=== PATIENT | male | born 1975 | race Hispanic/Latino ===

== ENCOUNTER 2019-01-31 10:16 | Outpatient (CLI) | payer MEDICARE ==
[2019-01-31] MEDS ORDERED: LIDOCAINE (4%) 40 MG/ML TOPICAL SOLN 50 ML BOTTLE TP ONE (11:00)
== END 2019-01-31 10:17 | disposition home or self-care (01) ==
LOC: WOUND 10:16
PROVIDERS: ATTEND Surgery
DX: L97.323 Non-pressure chronic ulcer of left ankle with necrosis of muscle (principal); L97.222 Non-pressure chronic ulcer of left calf with fat layer exposed; G80.9 Cerebral palsy, unspecified
CPT/HCPCS: 11042; 11043; G0463; 99204

== ENCOUNTER 2019-02-08 11:20 | Day surgery (SDC) | payer MEDICARE ==
[~2019-02-08 11:20] MED LIST: SODIUM CHLORIDE 0.9% 1000 ML 1,000 ML IV SCH
[2019-02-08] MEDS ORDERED: LIDOCAINE MPF (2%) 20 MG/1 ML VIAL 5 ML ONE (12:30)
[2019-02-08] MEDS ORDERED: PROPOFOL 200 MG/20 ML VIAL IV ONE ×2 (12:33→12:34)
--- NOTE | 2019-02-08 12:47 | Anesthesia Consultation ---
Anesthesia Consult and Med Hx Date of service: 02/08/19 - Airway Anesthetic Teeth Evaluation: Poor ROM Head & Neck: Adequate Mental/Hyoid Distance: Adequate Mallampati Class: Class II Intubation Access Assessment: Good - Pulmonary Exam CTA: Yes - Cardiac Exam Cardiac Exam: RRR - Pre-Operative Health Status ASA Pre-Surgery Classification: ASA3 Proposed Anesthetic Plan: MAC - Central Nervous System Hx Seizures: Yes - Endocrine Hx Renal Disease: Yes - Hematic Hx Anemia: Yes
--- NOTE | 2019-02-08 12:47 | Anesthesia Day of Surgery ---
Anesthesia Day of Surgery - Day of Surgery Patient Examined: Yes Patient H&P Reviewed: Yes Patient is NPO: Yes
--- NOTE | 2019-02-08 13:08 | Short Stay Summary ---
Short Stay Documentation Date of service: 02/08/19 Narrative H&P: Pt is a 43 yo wm with h/o developmental delay/cerebral palsy who presents for egd/colonoscopy due to [place] and weight loss. Pt accompanied by medical care manager and mother. weight stable since clinic appt; no new gi issues since last appt. - History Past Medical History: other (no changes from clinic note) Past Surgical History: Other (no changes from clinic note) Social history: other (no changes) - Allergies and Medications Current Medications: Allergies No Known Allergies Allergy (Verified 07/03/15 10:03) Home Medications Medication Instructions Recorded Confirmed Last Taken Type Benztropine 1 tab PO DAILY 02/07/19 02/08/19 02/05/19 History Carbamazepine 1 tab PO DAILY 02/07/19 02/08/19 02/05/19 History Coenzyme Q-10 1 tab PO DAILY 02/07/19 02/08/19 02/05/19 History Divalproex Sodium 1 tab PO DAILY 02/07/19 02/08/19 02/05/19 History Docusate Sodium 1 applicator PO DAILY 02/07/19 02/08/19 02/05/19 History Folic Acid 1 mg PO DAILY 02/07/19 02/08/19 02/05/19 History Loratadine 10 mg PO DAILY 02/07/19 02/08/19 02/05/19 History Meloxicam 1 tab PO DAILY 02/07/19 02/08/19 02/05/19 History Multiple Vitamins 1 tab PO DAILY 02/07/19 02/08/19 02/05/19 History QUEtiapine 1 tab PO DAILY 02/07/19 02/08/19 02/05/19 History Ranitidine HCl 150 mg PO DAILY 02/07/19 02/08/19 02/05/19 History Vitamin C 1 tab PO DAILY 02/07/19 02/08/19 02/05/19 History Active Medications Sodium Chloride (Nacl 0.9% 1000 Ml) 1,000 mls @ 50 mls/hr IV DIRECT DANNY Last Admin: 02/08/19 12:29 Dose: 50 mls/hr Documented by: - Physical exam General appearance: no acute distress Heart: Regular rate, Normal S2 Gastrointestinal: normal - Brief post op/procedure progress note Date of procedure: 02/08/19 Pre-op diagnosis: iron deficiency anemia, weight loss Post-op diagnosis: other (ulcerative esophagitis; incomplete colon due to poor prep) Procedure: EGD: ulcerative esophagitis s/p biopsies; otherwise normal upper endoscopy. duodenal bx's obtained to r/o sprue Colonoscopy: poor prep; extent of exam likely hepatic flexure/proximal transver se. aborted due to inadequate visualization. Anesthesia: MAC Findings: 1. EGD: ulcerative esophagitis 2. Colonoscopy: poor prep; no obvious significant lesions in visualized portion of colon Surgeon: LAZ WAYNE Estimated blood loss: minimal Pathology: list (Jar A - duodenal biopsies; Jar B - ulcerative esophagitis biopsies) Specimen disposition: to lab Condition: stable - Disposition Condition at discharge: Fair Disposition: DC-01 TO HOME OR SELFCARE Short Stay Discharge Plan Follow up with: ABRAHAM DUARTE [Other] - 7 Days
--- NOTE | 2019-02-08 13:10 | Operative Report ---
Operative Report Operative Report: Esophagogastroduodenoscopy Procedure Note with Biopsies Date of procedure: 02/08/2019 Endoscopist: Srinivasan Payne Pre-op diagnosis/indication: Iron deficiency anemia, weight loss Post-op diagnosis: Ulcerative esophagitis MEDICATIONS: MAC COMPLICATIONS: No immediate complications ESTIMATED BLOOD LOSS: minimal DESCRIPTION OF PROCEDURE: After consent was obtained from the patient's mother, the patient was placed in the left lateral decubitis position. The olympus endoscope was inserted into the patient's mouth under direct vision and advanced to the 2nd portion of the duodenum without difficulty. The patient tolerated the procedure well. The views of the mucosa were good. The patient's vital signs were monitored continuously throughout the procedure. FINDINGS: There was severe ulcerative esophagitis (superficial ulcerations without bleeding stigmata) in the lower third of the esophagus. Biopsies were obtained (rule out infectious etiology, jolley's esophagus). The stomach appeared normal. The duodenum appeared normal. biopsies were obtained to rule out celiac disease. IMPRESSION: 1. Ulcerative esophagitis. Biopsied. 2. Otherwise normal stomach and duodenum. Biopsies obtained from duodenum to rule out celiac disease. RECOMMENDATIONS: -follow up pathology -anti-acid medication (PPI) daily -follow up in GI clinic in 1 month
--- NOTE | 2019-02-08 13:13 | Operative Report ---
Operative Report Operative Report: Colonoscopy Procedure Note Date of procedure: 02/08/2019 Endoscopist: Srinivasan Payne Pre-op diagnosis/indication: Iron deficiency anemia Post-op diagnosis: poor prep, no significant lesions in visualized portion of colon MEDICATIONS: MAC COMPLICATIONS: No immediate complications ESTIMATED BLOOD LOSS: none DESCRIPTION OF PROCEDURE: After consent was obtained from the patient's mother, the patient was placed in the left lateral decubitis position. The olympus colonoscope was inserted into the rectum under direct vision, and advanced to the suspected hepatic flexure (intent of exam was cecum). The procedure was aborted due to poor prep/inadequate visualization. The patient tolerated the procedure well. The patient's vital signs were monitored continuously throughout the procedure. FINDINGS: Inadequate/poor prep. Extent of exam suspected proximal transverse colon vs hepatic flexure. Further advancement of colonsocope not done due to solid stool preventing visualization. No obvious significant lesions were seen in the visualized portion of the colon however. IMPRESSION: 1. Poor prep, extent of exam likely hepatic flexure vs proximal transverse colon. procedure aborted due to inadequate prep RECOMMENDATIONS: -barium enema vs CT colonography. will discuss at follow-up appointment in 3-4 weeks. -check labs at follow-up appointment
[2019-02-08 13:39] VITALS: BP 109/63
--- NOTE | 2019-02-08 15:50 | Post Anesthesia Evaluation ---
- Post Anesthesia Evaluation Patient Participated: Yes Airway Patent: Yes Stable Respiratory Function: Yes Nausea/Vomiting: No Temp > 96.8F: Yes Pain Manageable: Yes Adequeate Hydration: Yes Anesthesia Complications: No Block Receding Appropriately: Not Applicable Patient on Ventilator: No
== END 2019-02-08 13:46 | disposition home or self-care (01) ==
LOC: GIO 11:20
PROVIDERS: ATTEND Internal Medicine Gastroenterology
DX: D50.9 Iron deficiency anemia, unspecified (principal); K31.89 Other diseases of stomach and duodenum; K20.9 Esophagitis, unspecified; R63.4 Abnormal weight loss; N28.89 Other specified disorders of kidney and ureter; F31.9 Bipolar disorder, unspecified; Z79.899 Other long term (current) drug therapy
CPT/HCPCS: 43239; 45378; 88305; 88312; 88342; J2704; J7030; 88341

== ENCOUNTER 2019-02-09 09:40 | Outpatient (CLI) | payer MEDICARE | END 2019-02-09 09:41 | disposition home or self-care (01) | LOC: WOUND 09:40 | PROVIDERS: ATTEND Surgery | DX: L97.323 Non-pressure chronic ulcer of left ankle with necrosis of muscle (principal); L97.222 Non-pressure chronic ulcer of left calf with fat layer exposed; J42 Unspecified chronic bronchitis; F79 Unspecified intellectual disabilities ==

== ENCOUNTER 2019-02-16 10:29 | Outpatient (CLI) | payer MEDICARE ==
[2019-02-16] MEDS ORDERED: XYLOCAINE TOPICAL 4% TP ONE (11:00)
== END 2019-02-16 10:30 | disposition home or self-care (01) ==
LOC: WOUND 10:29
PROVIDERS: ATTEND Surgery
DX: L97.323 Non-pressure chronic ulcer of left ankle with necrosis of muscle (principal); L97.222 Non-pressure chronic ulcer of left calf with fat layer exposed; J42 Unspecified chronic bronchitis; F79 Unspecified intellectual disabilities

== ENCOUNTER 2019-02-21 10:58 | Outpatient (CLI) | payer MEDICARE ==
--- NOTE | 2019-02-21 16:07 | Vascular Lab Report ---
DUPLEX DOPPLER LOWER EXTREMITY ARTERIAL, BILATERAL INDICATION: Chronic ulcer left ankle. TECHNIQUE: Arterial duplex examination of both lower extremities performed using B-mode, color flow and spectral Doppler assessment. FINDINGS: RIGHT: Common Femoral Artery: PSV 125 cm/sec. Triphasic waveform. Proximal SFA: PSV 90 cm/sec. Triphasic waveform. Mid SFA: PSV 121 cm/sec. Triphasic waveform. Distal SFA: PSV 108 cm/sec. Biphasic waveform. Popliteal artery: PSV 80 cm/sec. Biphasic waveform. Posterior tibial artery: PSV 44 cm/sec. Biphasic waveform. Dorsalis Pedis Artery: PSV 59 cm/sec. Biphasic waveform. LEFT: Common Femoral Artery: PSV 149 cm/sec. Triphasic waveform. Proximal SFA: PSV 116 cm/sec. Triphasic waveform. Mid SFA: PSV 136 cm/sec. Biphasic waveform. Distal SFA: PSV 130 cm/sec. Monophasic waveform. Popliteal artery: PSV 112 cm/sec. Monophasic waveform. Posterior tibial artery: PSV 90 cm/sec. Monophasic waveform. Dorsalis Pedis Artery: PSV 23 cm/sec. Monophasic waveform. IMPRESSION: 1. There is a change from triphasic to monophasic flow in the left superficial femoral artery indicat ing significant disease in the mid to distal SFA on the left. No discrete velocity of change is seen. There is evidence of disease in the distal runoff vessels bilaterally. These but no discrete velocity elevation is seen in the distal runoff vessels of either lower extremity. * Doppler Waveform: * Triphasic is normal. * Biphasic is abnormal if clear transition from triphasic signal along vascular tree. * Monophasic is abnormal. Signer Name: Edmar Pineda MD Signed: 02/21/2019 4:02 PM Workstation Name: [id number]
== END 2019-02-21 10:59 | disposition home or self-care (01) ==
LOC: VAS 10:58
PROVIDERS: ATTEND Surgery
DX: L97.323 Non-pressure chronic ulcer of left ankle with necrosis of muscle (principal)
CPT/HCPCS: 93925

== ENCOUNTER 2019-02-23 09:56 | Outpatient (CLI) | payer MEDICARE ==
[2019-02-23] MEDS ORDERED: XYLOCAINE TOPICAL 4% TP ONE (11:18)
== END 2019-02-23 09:57 | disposition home or self-care (01) ==
LOC: WOUND 09:56
PROVIDERS: ATTEND Surgery
DX: L97.323 Non-pressure chronic ulcer of left ankle with necrosis of muscle (principal); L97.222 Non-pressure chronic ulcer of left calf with fat layer exposed; J42 Unspecified chronic bronchitis; F79 Unspecified intellectual disabilities

== ENCOUNTER 2019-03-02 09:56 | Outpatient (CLI) | payer MEDICARE ==
[2019-03-02] MEDS ORDERED: LIDOCAINE (4%) 40 MG/ML TOPICAL SOLN 50 ML BOTTLE TP ONE (11:00)
== END 2019-03-02 09:57 | disposition home or self-care (01) ==
LOC: WOUND 09:56
PROVIDERS: ATTEND Surgery
DX: L97.323 Non-pressure chronic ulcer of left ankle with necrosis of muscle (principal); L97.222 Non-pressure chronic ulcer of left calf with fat layer exposed; J42 Unspecified chronic bronchitis; F79 Unspecified intellectual disabilities

== ENCOUNTER 2019-03-09 09:52 | Outpatient (CLI) | payer MEDICARE ==
[2019-03-09] MEDS ORDERED: LIDOCAINE (4%) 40 MG/ML TOPICAL SOLN 50 ML BOTTLE TP ONE (12:00)
== END 2019-03-09 09:53 | disposition home or self-care (01) ==
LOC: WOUND 09:52
PROVIDERS: ATTEND Surgery
DX: L97.323 Non-pressure chronic ulcer of left ankle with necrosis of muscle (principal); L97.222 Non-pressure chronic ulcer of left calf with fat layer exposed; J42 Unspecified chronic bronchitis; G80.9 Cerebral palsy, unspecified; F79 Unspecified intellectual disabilities

== ENCOUNTER 2019-03-09 17:45 | Emergency (ER) | payer MEDICARE ==
[2019-03-09 19:37] VITALS: BP 138/89
--- NOTE | 2019-03-09 19:41 | Emergency Department Report ---
Blank Doc - Documentation Documentation: 43-year-old male that is brought by shelter facility for a ground level f all. Nurse denies any LOC. HX of mental delay. This initial assessment/diagnostic orders/clinical plan/treatment(s) is/are subject to change based on patient's health status, clinical progression and re- assessment by fellow clinical providers in the ED. Further treatment and workup at subsequent clinical providers discretion. Patient/guardians urged not to elope from the ED as their condition may be serious if not clinically assessed and managed. Initial orders include: 1- Patient sent to [facility] for further evaluation and treatment 2- xray of facial bone
--- NOTE | 2019-03-09 20:28 | XRay Report ---
Facial bones, 4 views INDICATION: Pain following fall tonight FINDINGS: The sinuses are well aerated with no air-fluid levels seen. No facial bone fracture identif ied. Signer Name: Zachariah Atkinson MD Signed: 03/09/2019 8:24 PM Workstation Name: [id number]
--- NOTE | 2019-03-09 21:54 | Emergency Department Report ---
ED Fall HPI - General Chief Complaint: Fall Stated Complaint: LFT ARM PAIN/FALL INJURY Time Seen by Provider: 03/09/19 19:33 Source: patient Mode of arrival: Wheelchair - History of Present Illness Initial Comments: Per caregiver, patient is a 43-year-old white male with a history of MR, seizures and frequent falls who presents to the ED with nosebleed and facial swelling after he lost balance and fell off his chair about 12 hours ago. The caregiver states that the patient is nonambulatory and is usually confined to a wheelchair, and that today he was restrained on his wheelchair when he tipped forward and fell on his face. The caregiver states that the patient did not have any loss of consciousness, has not had any dizziness, nausea, vomiting, seizures, syncope, change in vision, altered mental status or change in activity, chest pain or neck pain or shortness of breath. 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 denies: headache, neck pain, numbness, chest paint, shortness of breath, abdominal pain, unable to walk, lightheaded, vertigo, confusion, other - Related Data Home Medications Medication Instructions Recorded Confirmed Last Taken Benztropine 1 tab PO DAILY 02/07/19 02/08/19 02/05/19 Carbamazepine 1 tab PO DAILY 02/07/19 02/08/19 02/05/19 Coenzyme Q-10 1 tab PO DAILY 02/07/19 02/08/19 02/05/19 Divalproex Sodium 1 tab PO DAILY 02/07/19 02/08/19 02/05/19 Docusate Sodium 1 applicator PO DAILY 02/07/19 02/08/19 02/05/19 Folic Acid 1 mg PO DAILY 02/07/19 02/08/19 02/05/19 Loratadine 10 mg PO DAILY 02/07/19 02/08/19 02/05/19 Meloxicam 1 tab PO DAILY 02/07/19 02/08/1902/05/19 Multiple Vitamins 1 tab PO DAILY 02/07/19 02/08/19 02/05/19 QUEtiapine 1 tab PO DAILY 02/07/19 02/08/19 02/05/19 Ranitidine HCl 150 mg PO DAILY 02/07/19 02/08/19 02/05/19 Vitamin C 1 tab PO DAILY 02/07/19 02/08/19 02/05/19 Allergies Allergy/AdvReac Type Severity Reaction Status Date / Time No Known Allergies Allergy Verified 07/03/15 10:03 ED Review of Systems ROS: Stated complaint: LFT ARM PAIN/FALL INJURY Other details as noted in HPI Constitutional: denies: chills, fever Eyes: denies: eye pain, eye discharge, vision change ENT: other (Nosebleed, facial abrasion and swelling). denies: ear pain, throat pain Respiratory: denies: cough, shortness of breath, wheezing Cardiovascular: denies: chest pain, palpitations Endocrine: no symptoms reported Gastrointestinal: denies: abdominal pain, nausea, diarrhea Genitourinary: denies: urgency, dysuria Musculoskeletal: denies: back pain, joint swelling, arthralgia Skin: other (Chronic open wound on left ankle). denies: rash, lesions Neurological: denies: headache, weakness, paresthesias Psychiatric: denies: anxiety, depression Hematological/Lymphatic: denies: easy bleeding, easy bruising ED Past Medical Hx - Past Medical History Previous Medical History?: Yes Hx Renal Disease: Yes Hx Seizures: Yes Additional medical history: MR, autisim - Surgical History Past Surgical History?: No Hx Appendectomy: No - Social History Smoking Status: Never Smoker - Medications Home Medications: Home Medications Medication Instructions Recorded Confirmed Last Taken Type Benztropine 1 tab PO DAILY 02/07/19 02/08/19 02/05/19 History Carbamazepine 1 tab PO DAILY 02/07/19 02/08/19 02/05/19 History Coenzyme Q-10 1 tab PO DAILY 02/07/19 02/08/19 02/05/19 History Divalproex Sodium 1 tab PO DAILY 02/07/19 02/08/19 02/05/19 History Docusate Sodium 1 applicator PO DAILY 02/07/19 02/08/19 02/05/19 History Folic Acid 1 mg PO DAILY 02/07/19 02/08/19 02/05/19 History Loratadine 10 mg PO DAILY 02/07/19 02/08/19 02/05/19 History Meloxicam 1 tab PO DAILY 02/07/19 02/08/19 02/05/19 History Multiple Vitamins 1 tab PO DAILY 02/07/19 02/08/19 02/05/19 History QUEtiapine 1 tab PO DAILY 02/07/19 02/08/19 02/05/19 History Ranitidine HCl 150 mg PO DAILY 02/07/19 02/08/19 02/05/19 History Vitamin C 1 tab PO DAILY 02/07/19 02/08/19 02/05/19 History ED Physical Exam - General Limitations: No Limitations General appearance: alert, in no apparent distress - Head Head exam: Present: atraumatic, normocephalic, normal inspection - Eye Eye exam: Present: normal appearance, PERRL, EOMI Pupils: Present: normal accommodation - ENT ENT exam: Present: normal orophraynx, mucous membranes moist, TM's normal bilaterally, normal external ear exam, other (facial swelling; nosebleed and abrasions) - Neck Neck exam: Present: normal inspection, full ROM. Absent: tenderness - Respiratory Respiratory exam: Present: normal lung sounds bilaterally. Absent: respiratory distress, wheezes, rhonchi, stridor, chest wall tenderness, accessory muscle use, decreased breath sounds - Cardiovascular Cardiovascular Exam: Present: regular rate, normal rhythm, normal heart sounds. Absent: systolic murmur, diastolic murmur, rubs, gallop - GI/Abdominal GI/Abdominal exam: Present: soft, normal bowel sounds. Absent: tenderness, guarding, rebound, hyperactive bowel sounds, hypoactive bowel sounds, organomegaly - Extremities Exam Extremities exam: Present: normal inspection, full ROM, tenderness (left ankle tenderness due to an open wound on left ankle.), normal capillary refill - Back Exam Back exam: Present: normal inspection, full ROM. Absent: CVA tenderness (L), muscle spasm, paraspinal tenderness - Neurological Exam Neurological exam: Present: alert, oriented X3, CN II-XII intact, abnormal gait (baseline chronic ataxia due to MR, wheelchair bound with unsteady gait), reflexes normal - Psychiatric Psychiatric exam: Present: normal affect, normal mood - Skin Skin exam: Present: warm, dry, intact, normal color, other (Chronic open wound on left ankle with mild redness around the wound edges) ED Course Vital Signs 03/09/19 19:33 Temperature 97.2 F L Pulse Rate 64 Respiratory 16 Rate Blood Pressure 138/89 O2 Sat by Pulse 100 Oximetry - Reevaluation(s) Reevaluation #1: 03/09/19 21:57 This is a 43-year-old male who presented to the ED for evaluation after a fall from his wheelchair. Patient has a history of chronic seizures, ataxia due to MR and chronic frequent falls from his wheelchair. In the ED, patient is alert and fully interactive during physical exam. Facial bone x-ray shows no acute facial bone fractures or subluxations. The patient is currently on clindamycin 300 mg every 6 hours for the chronic left ankle open wound. Patient will discharged home and the caregiver advised to administer the patient's regular pain medications at home which she is ibuprofen as needed and have the patient follow-up with his primary care physician in 5-7 days for reevaluation or return to the ED immediately if symptoms get worse. ED Medical Decision Making - Radiology Data Radiology results: report reviewed, image reviewed Facial x-ray shows no acute facial bone fractures or subluxation. - Medical Decision Making This is a 43-year-old male who presented to the ED for evaluation after a fall from his wheelchair. Patient has a history of chronic seizures, ataxia due to MR and chronic frequent falls from his wheelchair. In the ED, patient is alert and fully interactive during physical exam. Facial bone x-ray shows no acute facial bone fractures or subluxations. The patient is currently on clindamycin 300 mg every 6 hours for the chronic left ankle open wound. Patient will discharged home and the caregiver advised to administer the patient's regular pain medications at home which she is ibuprofen as needed and have the patient follow-up with his primary care physician in 5-7 days for reevaluation or return to the ED immediately if symptoms get worse. - Differential Diagnosis facial contusion; facial bone fractures; Septal fracture Critical care attestation.: If time is entered above; I have spent that time in minutes in the direct care of this critically ill patient, excluding procedure time. ED Disposition Clinical Impression: Nosebleed Contusion of face Qualifiers: Encounter type: initial encounter Qualified Code(s): S00.83XA - Contusion of other part of head, initial encounter Disposition: DC- TO HOME OR SELFCARE Is pt being admited?: No Does the pt Need Aspirin: No Condition: Stable Instructions: Epistaxis (ED), Scalp Contusion in Adults (ED) Additional Instructions: Taking your regular pain medications at home as needed with food, follow-up with their primary care physician in 5-7 days for reevaluation. Return to the emergency Department immediately if symptoms get worse. Referrals: [facility] [Outside] - 3-5 Days Time of Disposition: 22:02 Print Language: SENEGALESE
== END 2019-03-09 22:10 | disposition home or self-care (01) ==
LOC: ED 17:45
DX: S00.33XA Contusion of nose, initial encounter (principal); S91.002A Unspecified open wound, left ankle, initial encounter; Z79.899 Other long term (current) drug therapy; W07.XXXA Fall from chair, initial encounter; Y93.89 Activity, other specified; Y92.098 Other place in other non-institutional residence as the place of occurrence of the external cause; Y99.8 Other external cause status
CPT/HCPCS: 70150; 99283

== ENCOUNTER 2019-03-16 09:19 | Outpatient (CLI) | payer MEDICARE ==
[2019-03-16] MEDS ORDERED: LIDOCAINE (4%) 40 MG/ML TOPICAL SOLN 50 ML BOTTLE TP ONE (10:30)
== END 2019-03-16 09:20 | disposition home or self-care (01) ==
LOC: WOUND 09:19
PROVIDERS: ATTEND Surgery
DX: L97.323 Non-pressure chronic ulcer of left ankle with necrosis of muscle (principal); L97.222 Non-pressure chronic ulcer of left calf with fat layer exposed; J42 Unspecified chronic bronchitis; G80.9 Cerebral palsy, unspecified; F79 Unspecified intellectual disabilities

== ENCOUNTER 2019-03-22 10:12 | Outpatient (CLI) | payer MEDICARE ==
--- NOTE | 2019-03-22 13:44 | Magnetic Resonance Report ---
MRI left ankle with and without contrast HISTORY: L97.323 NON-PRESSURE CHRONIC ULCER OF LEFT ANKLE W NECROSIS OF MU. TECHNIQUE: 15 mL of MultiHance was given intravenously. COMPARISON: None FINDINGS: There is a soft tissue wound along the lateral aspect of the ankle with a tract extending to the tip of the lateral malleolus. There is mild bone marrow edema and low T1 signal in this region . There is no abscess formation identified; however, there is circumferential soft tissue swelling ab out the ankle extending into the foot. The lateral, medial, anterior, and posterior compartment tendons are all intact. The ATFL is attenuated but there are some intact fibers. The lateral, syndesmotic, and deltoid comple xes are otherwise intact. IMPRESSION: Deep soft tissue wound over the lateral aspect of the ankle with tract extending to the tip of the lateral malleolus where there is bone marrow edema and low T1 signal suggesting osteomyeli tis. No organized collection identified to suggest abscess formation. Signer Name: Haja Anton MD Signed: 03/22/2019 1:39 PM Workstation Name: [id number]
== END 2019-03-22 10:13 | disposition home or self-care (01) ==
LOC: MRI 10:12
PROVIDERS: ATTEND Surgery
DX: L97.323 Non-pressure chronic ulcer of left ankle with necrosis of muscle (principal)
CPT/HCPCS: 73723; A9577

== ENCOUNTER 2019-03-23 09:29 | Outpatient (CLI) | payer MEDICARE ==
[2019-03-23] MEDS ORDERED: LIDOCAINE (4%) 40 MG/ML TOPICAL SOLN 50 ML BOTTLE TP ONE (10:07)
== END 2019-03-23 09:30 | disposition home or self-care (01) ==
LOC: WOUND 09:29
PROVIDERS: ATTEND Surgery
DX: L97.323 Non-pressure chronic ulcer of left ankle with necrosis of muscle (principal); L97.222 Non-pressure chronic ulcer of left calf with fat layer exposed; J42 Unspecified chronic bronchitis; G80.9 Cerebral palsy, unspecified; F79 Unspecified intellectual disabilities

== ENCOUNTER 2019-04-05 10:46 | Outpatient (CLI) | payer MEDICARE ==
--- NOTE | 2019-04-05 11:24 | XRay Report ---
CHEST 2 VIEWS INDICATION: FOR HBO CLEARANCE/M86.472CHRONIC OSTEOMYELITIS WITH DRAINING SINU. COMPARISON: None at this facility FINDINGS: Support devices: None. Heart: Within normal limits. Lungs/pleura: No acute air space or interstitial disease. No pneumothorax. Additional findings: There is poor inspiratory effort. IMPRESSION: Negative expiratory chest x-ray. Signer Name: Ronaldo Ivey Jr, MD Signed: 04/05/2019 11:20 AM Workstation Name: [id number]
== END 2019-04-05 10:47 | disposition home or self-care (01) ==
LOC: XRAY 10:46
PROVIDERS: ATTEND Surgery
DX: M86.472 Chronic osteomyelitis with draining sinus, left ankle and foot (principal)
CPT/HCPCS: 71046

== ENCOUNTER 2019-04-06 10:34 | Outpatient (CLI) | payer MEDICARE ==
[2019-04-06] MEDS ORDERED: LIDOCAINE (4%) 40 MG/ML TOPICAL SOLN 50 ML BOTTLE TP ONE (11:30)
== END 2019-04-06 10:35 | disposition home or self-care (01) ==
LOC: WOUND 10:34
PROVIDERS: ATTEND Surgery
DX: L97.323 Non-pressure chronic ulcer of left ankle with necrosis of muscle (principal); L97.222 Non-pressure chronic ulcer of left calf with fat layer exposed; M86.472 Chronic osteomyelitis with draining sinus, left ankle and foot; J42 Unspecified chronic bronchitis; G80.9 Cerebral palsy, unspecified; F79 Unspecified intellectual disabilities

== ENCOUNTER 2019-04-13 10:47 | Outpatient (CLI) | payer MEDICARE ==
[2019-04-13] MEDS ORDERED: LIDOCAINE (4%) 40 MG/ML TOPICAL SOLN 50 ML BOTTLE TP ONE (11:30)
== END 2019-04-13 10:48 | disposition home or self-care (01) ==
LOC: WOUND 10:47
PROVIDERS: ATTEND Surgery
DX: L97.323 Non-pressure chronic ulcer of left ankle with necrosis of muscle (principal); L97.222 Non-pressure chronic ulcer of left calf with fat layer exposed; M86.472 Chronic osteomyelitis with draining sinus, left ankle and foot; J42 Unspecified chronic bronchitis; G80.9 Cerebral palsy, unspecified; F79 Unspecified intellectual disabilities

== ENCOUNTER 2019-04-20 09:45 | Outpatient (CLI) | payer MEDICARE ==
[2019-04-20] MEDS ORDERED: LIDOCAINE (4%) 40 MG/ML TOPICAL SOLN 50 ML BOTTLE TP ONE (11:21)
== END 2019-04-20 09:46 | disposition home or self-care (01) ==
LOC: WOUND 09:45
PROVIDERS: ATTEND Surgery
DX: L97.323 Non-pressure chronic ulcer of left ankle with necrosis of muscle (principal); L97.222 Non-pressure chronic ulcer of left calf with fat layer exposed; M86.472 Chronic osteomyelitis with draining sinus, left ankle and foot; J42 Unspecified chronic bronchitis; G80.9 Cerebral palsy, unspecified; F79 Unspecified intellectual disabilities

== ENCOUNTER 2019-04-27 11:01 | Outpatient (CLI) | payer MEDICARE | END 2019-04-27 11:02 | disposition home or self-care (01) | LOC: WOUND 11:01 ==

== ENCOUNTER 2019-05-11 08:51 | Outpatient (CLI) | payer MEDICARE ==
[2019-05-11] MEDS ORDERED: LIDOCAINE (4%) 40 MG/ML TOPICAL SOLN 50 ML BOTTLE TP ONE (09:30)
== END 2019-05-11 08:52 | disposition home or self-care (01) ==
LOC: WOUND 08:51
PROVIDERS: ATTEND Surgery
DX: L97.323 Non-pressure chronic ulcer of left ankle with necrosis of muscle (principal); L97.222 Non-pressure chronic ulcer of left calf with fat layer exposed; M86.472 Chronic osteomyelitis with draining sinus, left ankle and foot; J42 Unspecified chronic bronchitis; G80.9 Cerebral palsy, unspecified; F79 Unspecified intellectual disabilities

== ENCOUNTER 2019-05-18 09:00 | Outpatient (CLI) | payer MEDICARE ==
[2019-05-18] MEDS ORDERED: LIDOCAINE (4%) 40 MG/ML TOPICAL SOLN 50 ML BOTTLE TP ONE (09:13)
== END 2019-05-18 09:01 | disposition home or self-care (01) ==
LOC: WOUND 09:00
PROVIDERS: ATTEND Surgery
DX: L97.323 Non-pressure chronic ulcer of left ankle with necrosis of muscle (principal); L97.222 Non-pressure chronic ulcer of left calf with fat layer exposed; M86.472 Chronic osteomyelitis with draining sinus, left ankle and foot; J42 Unspecified chronic bronchitis; G80.9 Cerebral palsy, unspecified; F79 Unspecified intellectual disabilities

== ENCOUNTER 2019-06-06 09:47 | Outpatient (CLI) | payer MEDICARE ==
[2019-06-06] MEDS ORDERED: LIDOCAINE (4%) 40 MG/ML TOPICAL SOLN 50 ML BOTTLE TP ONE (10:30)
== END 2019-06-06 09:48 | disposition home or self-care (01) ==
LOC: WOUND 09:47
PROVIDERS: ATTEND Surgery
DX: L97.323 Non-pressure chronic ulcer of left ankle with necrosis of muscle (principal); L97.222 Non-pressure chronic ulcer of left calf with fat layer exposed; M86.472 Chronic osteomyelitis with draining sinus, left ankle and foot; J42 Unspecified chronic bronchitis; G80.2 Spastic hemiplegic cerebral palsy; F79 Unspecified intellectual disabilities

== ENCOUNTER 2019-06-21 10:04 | Outpatient (CLI) | payer MEDICARE ==
[2019-06-21] MEDS ORDERED: LIDOCAINE (4%) 40 MG/ML TOPICAL SOLN 50 ML BOTTLE TP ONE (10:23)
[2019-06-21] MEDS ORDERED: SILVER NITRATE APPLICATOR 1 EA TP NR (11:30)
== END 2019-06-21 10:05 | disposition home or self-care (01) ==
LOC: WOUND 10:04
PROVIDERS: ATTEND Surgery
DX: L97.323 Non-pressure chronic ulcer of left ankle with necrosis of muscle (principal); L97.222 Non-pressure chronic ulcer of left calf with fat layer exposed; M86.472 Chronic osteomyelitis with draining sinus, left ankle and foot; J42 Unspecified chronic bronchitis; G80.2 Spastic hemiplegic cerebral palsy; F79 Unspecified intellectual disabilities

== ENCOUNTER 2019-06-28 09:58 | Outpatient (CLI) | payer MEDICARE ==
[2019-06-28] MEDS ORDERED: LIDOCAINE (4%) 40 MG/ML TOPICAL SOLN 50 ML BOTTLE TP ONE (10:08)
== END 2019-06-28 09:59 | disposition home or self-care (01) ==
LOC: WOUND 09:58
PROVIDERS: ATTEND Surgery
DX: L97.323 Non-pressure chronic ulcer of left ankle with necrosis of muscle (principal); L97.222 Non-pressure chronic ulcer of left calf with fat layer exposed; M86.472 Chronic osteomyelitis with draining sinus, left ankle and foot; J42 Unspecified chronic bronchitis; G80.2 Spastic hemiplegic cerebral palsy; F79 Unspecified intellectual disabilities

== ENCOUNTER 2019-06-29 12:20 | Outpatient (CLI) | payer MEDICARE ==
--- NOTE | 2019-06-29 14:07 | XRay Report ---
XR hip 2-3V LT INDICATION / CLINICAL INFORMATION: M25.552 PAIN IN LEFT HIP. COMPARISON: None available. FINDINGS: BONES/JOINT(S): There is a comminuted subtrochanteric fracture of the proximal left femur with superi or displacement of the distal fracture fragment as well as lateral displacement. SOFT TISSUES: There is heterotopic ossification around the left hip joint. ADDITIONAL FINDINGS: None. Signer Name: Anil Go MD Signed: 06/29/2019 2:02 PM Workstation Name: [id number]
== END 2019-06-29 12:21 | disposition home or self-care (01) ==
LOC: XRAY 12:20
PROVIDERS: ATTEND Orthopaedic Surgery
DX: S72.102A Unspecified trochanteric fracture of left femur, initial encounter for closed fracture (principal); X58.XXXA Exposure to other specified factors, initial encounter; Y93.89 Activity, other specified; Y92.89 Other specified places as the place of occurrence of the external cause; Y99.8 Other external cause status

== ENCOUNTER 2019-07-06 10:16 | Outpatient (CLI) | payer MEDICARE ==
[2019-07-06] MEDS ORDERED: LIDOCAINE (4%) 40 MG/ML TOPICAL SOLN 50 ML BOTTLE TP ONE (10:17)
== END 2019-07-06 10:17 | disposition home or self-care (01) ==
LOC: WOUND 10:16
PROVIDERS: ATTEND Surgery
DX: L97.323 Non-pressure chronic ulcer of left ankle with necrosis of muscle (principal); L97.222 Non-pressure chronic ulcer of left calf with fat layer exposed; M86.472 Chronic osteomyelitis with draining sinus, left ankle and foot; J42 Unspecified chronic bronchitis; G80.2 Spastic hemiplegic cerebral palsy; F79 Unspecified intellectual disabilities

== ENCOUNTER 2019-07-12 09:50 | Outpatient (CLI) | payer MEDICARE ==
[2019-07-12] MEDS ORDERED: LIDOCAINE (4%) 40 MG/ML TOPICAL SOLN 50 ML BOTTLE TP SCH (10:00)
== END 2019-07-12 09:51 | disposition home or self-care (01) ==
LOC: WOUND 09:50
PROVIDERS: ATTEND Surgery
DX: L97.323 Non-pressure chronic ulcer of left ankle with necrosis of muscle (principal); L97.222 Non-pressure chronic ulcer of left calf with fat layer exposed; M86.472 Chronic osteomyelitis with draining sinus, left ankle and foot; J42 Unspecified chronic bronchitis; G80.2 Spastic hemiplegic cerebral palsy; F79 Unspecified intellectual disabilities

== ENCOUNTER 2019-07-26 10:07 | Outpatient (CLI) | payer MEDICARE ==
[2019-07-26] MEDS ORDERED: SILVER NITRATE APPLICATOR 1 EA TP ONE (10:18)
[2019-07-26] MEDS ORDERED: LIDOCAINE (4%) 40 MG/ML TOPICAL SOLN 50 ML BOTTLE TP ONE (10:30)
== END 2019-07-26 10:08 | disposition home or self-care (01) ==
LOC: WOUND 10:07
PROVIDERS: ATTEND Surgery
DX: L97.323 Non-pressure chronic ulcer of left ankle with necrosis of muscle (principal); L97.222 Non-pressure chronic ulcer of left calf with fat layer exposed; M86.472 Chronic osteomyelitis with draining sinus, left ankle and foot; J42 Unspecified chronic bronchitis; G80.2 Spastic hemiplegic cerebral palsy; F79 Unspecified intellectual disabilities

== ENCOUNTER 2019-08-09 10:07 | Outpatient (CLI) | payer MEDICARE ==
[2019-08-09] MEDS ORDERED: SILVER NITRATE APPLICATOR 1 EA TP ONE (11:30)
[2019-08-09] MEDS ORDERED: LIDOCAINE (4%) 40 MG/ML TOPICAL SOLN 50 ML BOTTLE TP ONE (11:30)
== END 2019-08-09 10:08 | disposition home or self-care (01) ==
LOC: WOUND 10:07
PROVIDERS: ATTEND Surgery
DX: L97.323 Non-pressure chronic ulcer of left ankle with necrosis of muscle (principal); L97.222 Non-pressure chronic ulcer of left calf with fat layer exposed; M86.472 Chronic osteomyelitis with draining sinus, left ankle and foot; J42 Unspecified chronic bronchitis; G80.2 Spastic hemiplegic cerebral palsy; F79 Unspecified intellectual disabilities

== ENCOUNTER 2019-08-23 10:12 | Outpatient (CLI) | payer MEDICARE ==
[2019-08-23] MEDS ORDERED: LIDOCAINE (4%) 40 MG/ML TOPICAL SOLN 50 ML BOTTLE TP ONE (10:15)
== END 2019-08-23 10:13 | disposition home or self-care (01) ==
LOC: WOUND 10:12
PROVIDERS: ATTEND Surgery
DX: L97.323 Non-pressure chronic ulcer of left ankle with necrosis of muscle (principal); L97.222 Non-pressure chronic ulcer of left calf with fat layer exposed; M86.472 Chronic osteomyelitis with draining sinus, left ankle and foot; J42 Unspecified chronic bronchitis; G80.2 Spastic hemiplegic cerebral palsy; F79 Unspecified intellectual disabilities

== ENCOUNTER 2019-08-30 10:02 | Outpatient (CLI) | payer MEDICARE ==
[2019-08-30] MEDS ORDERED: LIDOCAINE (4%) 40 MG/ML TOPICAL SOLN 50 ML BOTTLE TP ONE (10:05)
== END 2019-08-30 10:03 | disposition home or self-care (01) ==
LOC: WOUND 10:02
PROVIDERS: ATTEND Surgery
DX: S91.002D Unspecified open wound, left ankle, subsequent encounter (principal); M86.472 Chronic osteomyelitis with draining sinus, left ankle and foot; J42 Unspecified chronic bronchitis; G80.2 Spastic hemiplegic cerebral palsy; F79 Unspecified intellectual disabilities; X58.XXXD Exposure to other specified factors, subsequent encounter
CPT/HCPCS: 15271; Q4158; 15275

== ENCOUNTER 2019-10-04 10:02 | Outpatient (CLI) | payer MEDICARE ==
[2019-10-04] MEDS ORDERED: LIDOCAINE (4%) 40 MG/ML TOPICAL SOLN 50 ML BOTTLE TP ONE (10:04)
== END 2019-10-04 10:03 | disposition home or self-care (01) ==
LOC: WOUND 10:02
PROVIDERS: ATTEND Surgery
DX: S91.002D Unspecified open wound, left ankle, subsequent encounter (principal); G80.9 Cerebral palsy, unspecified; D64.9 Anemia, unspecified; J42 Unspecified chronic bronchitis; X58.XXXD Exposure to other specified factors, subsequent encounter

== ENCOUNTER 2019-11-15 10:10 | Outpatient (CLI) | payer MEDICARE ==
[2019-11-15] MEDS ORDERED: SILVER NITRATE APPLICATOR 1 EA TP ONE (10:13)
[2019-11-15] MEDS ORDERED: LIDOCAINE (4%) 40 MG/ML TOPICAL SOLN 50 ML BOTTLE TP ONE (10:13)
== END 2019-11-15 10:11 | disposition home or self-care (01) ==
LOC: WOUND 10:10
PROVIDERS: ATTEND Surgery
DX: L97.323 Non-pressure chronic ulcer of left ankle with necrosis of muscle (principal); L97.222 Non-pressure chronic ulcer of left calf with fat layer exposed; M86.472 Chronic osteomyelitis with draining sinus, left ankle and foot; D64.9 Anemia, unspecified; G80.9 Cerebral palsy, unspecified; J42 Unspecified chronic bronchitis; F79 Unspecified intellectual disabilities

== ENCOUNTER 2019-11-22 10:04 | Outpatient (CLI) | payer MEDICARE ==
[2019-11-22] MEDS ORDERED: LIDOCAINE (4%) 40 MG/ML TOPICAL SOLN 50 ML BOTTLE TP SCH (10:30)
== END 2019-11-22 10:05 | disposition home or self-care (01) ==
LOC: WOUND 10:04
PROVIDERS: ATTEND Surgery
DX: L97.323 Non-pressure chronic ulcer of left ankle with necrosis of muscle (principal); S91.002D Unspecified open wound, left ankle, subsequent encounter; L97.222 Non-pressure chronic ulcer of left calf with fat layer exposed; M86.472 Chronic osteomyelitis with draining sinus, left ankle and foot; D64.9 Anemia, unspecified; G80.9 Cerebral palsy, unspecified; J42 Unspecified chronic bronchitis; F79 Unspecified intellectual disabilities; X58.XXXD Exposure to other specified factors, subsequent encounter
CPT/HCPCS: 15271; Q4158; 15275

== ENCOUNTER 2019-12-20 10:13 | Outpatient (CLI) | payer MEDICARE ==
[2019-12-20] MEDS ORDERED: LIDOCAINE (4%) 40 MG/ML TOPICAL SOLN 50 ML BOTTLE TP ONE (10:30)
== END 2019-12-20 10:14 | disposition home or self-care (01) ==
LOC: WOUND 10:13
PROVIDERS: ATTEND Surgery
DX: L97.326 Non-pressure chronic ulcer of left ankle with bone involvement without evidence of necrosis (principal); S91.002D Unspecified open wound, left ankle, subsequent encounter; L97.222 Non-pressure chronic ulcer of left calf with fat layer exposed; M86.472 Chronic osteomyelitis with draining sinus, left ankle and foot; D64.9 Anemia, unspecified; G80.9 Cerebral palsy, unspecified; J42 Unspecified chronic bronchitis; X58.XXXD Exposure to other specified factors, subsequent encounter

== ENCOUNTER 2019-12-27 09:59 | Outpatient (CLI) | payer MEDICARE ==
[2019-12-27] MEDS ORDERED: LIDOCAINE (4%) 40 MG/ML TOPICAL SOLN 50 ML BOTTLE TP ONE (10:24)
== END 2019-12-27 10:00 | disposition home or self-care (01) ==
LOC: WOUND 09:59
PROVIDERS: ATTEND Surgery
DX: L97.326 Non-pressure chronic ulcer of left ankle with bone involvement without evidence of necrosis (principal); S91.002D Unspecified open wound, left ankle, subsequent encounter; L97.222 Non-pressure chronic ulcer of left calf with fat layer exposed; M86.472 Chronic osteomyelitis with draining sinus, left ankle and foot; D64.9 Anemia, unspecified; G80.9 Cerebral palsy, unspecified; J42 Unspecified chronic bronchitis; F79 Unspecified intellectual disabilities; X58.XXXD Exposure to other specified factors, subsequent encounter

== ENCOUNTER 2020-01-11 11:29 | Day surgery (SDC) | payer MEDICARE ==
[2020-01-09 10:54] LABS: Hematocrit 40.9 % (35.5-45.6); Hemoglobin 13.8 gm/dl (11.8-15.2); Mean Corpuscular HGB Conc 34 % (32-34); Mean Corpuscular Volume 99 fl (84-94); Platelet Count 225 K/mm3 (140-440); Red Blood Count 4.12 M/mm3 (3.65-5.03); Red Cell Distribution Width 13.9 % (13.2-15.2)
[2020-01-09 11:11] LABS: Blood Urea Nitrogen 14 mg/dL (9-20); Calcium 9.2 mg/dL (8.4-10.2); Hemolysis Index 6
[2020-01-09 11:20] LABS: BUN/Creatinine Ratio 28
[2020-01-11] MEDS ORDERED: LACTATED RINGERS 1,000 ML IV SCH (11:35)
[2020-01-11] MEDS ORDERED: ONDANSETRON 4 MG/2 ML INJ IV PRN (11:44)
[2020-01-11] MEDS ORDERED: HYDROmorphone 1 MG/1 ML INJ IV PRN ×2 (11:44)
[2020-01-11] MEDS ORDERED: HEPARIN 5,000 UNIT/1 ML VIAL SUB-Q NR (11:45)
--- NOTE | 2020-01-11 11:57 | Anesthesia Day of Surgery ---
Anesthesia Day of Surgery - Day of Surgery Patient Examined: Yes Patient H&P Reviewed: Yes Patient is NPO: Yes
--- NOTE | 2020-01-11 11:59 | Anesthesia Consultation ---
Anesthesia Consult and Med Hx Date of service: 01/11/20 - Airway Anesthetic Teeth Evaluation: Good ROM Head & Neck: Adequate Mental/Hyoid Distance: Adequate Mallampati Class: Class II Intubation Access Assessment: Probably Good - Pre-Operative Health Status ASA Pre-Surgery Classification: ASA3 Proposed Anesthetic Plan: General (Bedridden-contractures of legs; Cerebral palsy, development delays, non-verbal, autism. Mother at bedside.) - Pulmonary Hx Smoking: No Hx Sleep Apnea: No (SILVIA PRE SCREEN LOW RISK) - Cardiovascular System Hx Hypertension: No - Central Nervous System Hx Seizures: No (TAKES SEIZURE MEDS FOR PSYCHIATRIC REASONS) Hx Psychiatric Problems: Yes (Bipolar) - Endocrine Hx Renal Disease: Yes - Hematic Hx Anemia: Yes - Other Systems Hx Cancer: No
[2020-01-11] MEDS ORDERED: ceFAZolin/STERILE WATER 2 GM/20 ML SYRINGE IV NR (12:00)
[2020-01-11] MEDS ORDERED: MIDAZOLAM 2 MG/2 ML INJ IV NR (12:00)
[2020-01-11] MEDS ORDERED: fentaNYL 100 MCG/2 ML INJ ONE (12:35)
[2020-01-11] MEDS ORDERED: propofoL 200 MG/20 ML VIAL IV ONE (12:35)
[2020-01-11] MEDS ORDERED: SODIUM CHLORIDE 0.9% IRR 1,500 ML BOTTLE IR ONE (12:43)
[2020-01-11] MEDS ORDERED: LIDOCAINE MPF (2%) 20 MG/1 ML VIAL 5 ML ONE (12:44)
[2020-01-11] MEDS ORDERED: ONDANSETRON 4 MG/2 ML INJ ONE (12:44)
--- NOTE | 2020-01-11 14:09 | Procedure Note ---
Date of procedure: 01/11/20 Pre-op diagnosis: Osteomyelitis with draining sinus of left lateral malleolus Post-op diagnosis: same Procedure: Sequestrectomy, left lateral malleolus Description of procedure: After general anesthsia was administered, the pt was repositioned to a partial right side down position. The left foot was prepped and draped. A circular segment of skin measuring 1.8 cm was excised around the sinus with the Bovie. The tissue deep to the SQ including fascia and infected bone was then removed with a disposeable 5 mm curette. Bleeding was controlled with the Bovie. Wound was irrigated and was packed open with a small piece of Surgicel. This was followed by a dry 4X4, Kerlix wrap and Coban wrap. Pt tolerated the procedure well. He was taken to PACU in stable condition. Anesthesia: other (LMA) Surgeon: JACINDA SENA Estimated blood loss: minimal Pathology: none Specimen disposition: discarded Condition: stable Disposition: PACU
[2020-01-11 14:19] VITALS: BP 110/66
--- NOTE | 2020-01-11 15:21 | Consultation ---
History of Present Illness Reason for consult: abdominal pain Past History Past Surgical History: Other Medications and Allergies Allergies Allergy/AdvReac Type Severity Reaction Status Date / Time No Known Allergies Allergy Verified 07/03/15 10:03 Home Medications Medication Instructions Recorded Confirmed Last Taken Type Benztropine 1 mg PO BID 02/07/19 01/05/20 01/10/20 20:00 History Carbamazepine 1 tab PO BID 02/07/19 01/05/20 01/10/20 20:00 History Coenzyme Q-10 1 tab PO DAILY 02/07/19 01/05/20 01/10/20 20:00 History Docusate Sodium 1 tab PO BID 02/07/19 01/05/20 01/10/20 20:00 History Folic Acid 1 mg PO BID 02/07/19 01/05/20 01/10/20 08:00 History QUEtiapine 200 mg PO BID 02/07/19 01/05/20 01/10/20 20:00 History Vitamin C 500 mg PO BID 02/07/19 01/05/20 01/10/20 20:00 History ALBUTEROL NEB's [Proventil 0.083% 2.5 mg IH TID PRN 01/05/20 01/11/20 01/11/20 08:00 History NEBS] Certavite 1 tab PO DAILY 01/05/20 01/05/20 01/10/20 08:00 History Cholecalciferol (Vitamin D3) 50,000 unit PO QWEEK 01/05/20 01/11/20 01/02/20 History [Vitamin D3 50,000UNIT CAP] Fluticasone [Flonase] 1 spray NS QDAY 01/05/20 01/05/20 01/10/20 08:00 History Omeprazole 40 mg PO DAILY 01/05/20 01/05/20 01/10/20 08:00 History Active Meds: Active Medications Cefazolin Sodium (Ancef/Sterile Water 2 Gm/20 Ml) 2 gm IV PREOP NR Stop: 01/11/20 23:59 Heparin Sodium (Porcine) (Heparin) 5,000 unit SUB-Q PREOP NR Stop: 01/11/20 23:59 Last Admin: 01/11/20 12:15 Dose: 5,000 unit Documented by: Hydromorphone HCl (Dilaudid) 0.25 mg IV Q10MIN PRN PRN Reason: Pain, Moderate (4-6) Stop: 01/11/20 23:59 Hydromorphone HCl (Dilaudid) 0.5 mg IV Q10MIN PRN PRN Reason: Pain , Severe (7-10) Stop: 01/11/20 23:59 Lactated Ringer's (Lactated Ringers) 1,000 mls @ 100 mls/hr IV DIRECT DANNY Stop: 01/11/20 17:00 Last Admin: 01/11/20 12:10 Dose: 100 mls/hr Documented by: Midazolam HCl (Versed) 2 mg IV PREOP NR Stop: 01/11/20 23:59 Last Admin: 01/11/20 12:09 Dose: 2 mg Documented by: Ondansetron HCl (Zofran) 4 mg IV ONCE PRN PRN Reason: Nausea And Vomiting Review of Systems All systems: negative Exam Vital Signs Temp Pulse Resp BP Pulse Ox 98.4 F 93 H 20 146/103 95 01/09/20 10:30 01/09/20 10:30 01/09/20 10:30 01/09/20 10:30 01/09/20 10:30 - General physical appearance Positive: well developed, well nourished, no distress - Eyes Positive: PERRL, normal occular movement - ENT Positive: normal pinna, normal nares, normal mucosa, no hearing loss, no congestion - Neck Positive: no masses, no bruits, trachea midline, no venous distension - Respiratory Positive: normal expansion, normal respiratory effort, clear to auscultation - Cardiovascular Rhythm: regular Heart Sounds: Present: S1 & S2. Absent: rub, click Results - Labs 01/09/20 10:10 01/09/20 10:10 - Imaging US - abdomen: report reviewed
== END 2020-01-11 11:30 | disposition home or self-care (01) ==
LOC: OR 11:29
PROVIDERS: ATTEND Surgery
DX: M86.172 Other acute osteomyelitis, left ankle and foot (principal); Z20.828 Contact with and (suspected) exposure to other viral communicable diseases; F31.9 Bipolar disorder, unspecified; Z79.899 Other long term (current) drug therapy; Z90.49 Acquired absence of other specified parts of digestive tract; Z91.81 History of falling; Z98.890 Other specified postprocedural states; Z86.2 Personal history of diseases of the blood and blood-forming organs and certain disorders involving the immune mechanism
CPT/HCPCS: 27641; 36415; 80048; 85027; J0690; J1644; J2250; J2405; J2704; J3010; J7120; U0003

== ENCOUNTER 2020-01-17 11:37 | Outpatient (CLI) | payer MEDICARE ==
[2020-01-17] MEDS ORDERED: LIDOCAINE (4%) 40 MG/ML TOPICAL SOLN 50 ML BOTTLE TP ONE (11:39)
== END 2020-01-17 11:38 | disposition home or self-care (01) ==
LOC: WOUND 11:37
PROVIDERS: ATTEND Surgery
DX: L97.326 Non-pressure chronic ulcer of left ankle with bone involvement without evidence of necrosis (principal); S91.002D Unspecified open wound, left ankle, subsequent encounter; L97.222 Non-pressure chronic ulcer of left calf with fat layer exposed; M86.472 Chronic osteomyelitis with draining sinus, left ankle and foot; D64.9 Anemia, unspecified; G80.9 Cerebral palsy, unspecified; J42 Unspecified chronic bronchitis; F79 Unspecified intellectual disabilities; X58.XXXD Exposure to other specified factors, subsequent encounter

== ENCOUNTER 2020-01-24 10:01 | Outpatient (CLI) | payer MEDICARE ==
[2020-01-24] MEDS ORDERED: LIDOCAINE (4%) 40 MG/ML TOPICAL SOLN 50 ML BOTTLE TP ONE (10:05)
== END 2020-01-24 10:02 | disposition home or self-care (01) ==
LOC: WOUND 10:01
PROVIDERS: ATTEND Surgery
DX: L97.326 Non-pressure chronic ulcer of left ankle with bone involvement without evidence of necrosis (principal); S91.002D Unspecified open wound, left ankle, subsequent encounter; L97.222 Non-pressure chronic ulcer of left calf with fat layer exposed; M86.472 Chronic osteomyelitis with draining sinus, left ankle and foot; D64.9 Anemia, unspecified; G80.9 Cerebral palsy, unspecified; J42 Unspecified chronic bronchitis; F79 Unspecified intellectual disabilities; X58.XXXD Exposure to other specified factors, subsequent encounter

== ENCOUNTER 2020-02-07 10:20 | Outpatient (CLI) | payer MEDICARE ==
[2020-02-07] MEDS ORDERED: LIDOCAINE (4%) 40 MG/ML TOPICAL SOLN 50 ML BOTTLE TP ONE (10:25)
== END 2020-02-07 10:21 | disposition home or self-care (01) ==
LOC: WOUND 10:20
PROVIDERS: ATTEND Surgery
DX: L97.326 Non-pressure chronic ulcer of left ankle with bone involvement without evidence of necrosis (principal); L97.222 Non-pressure chronic ulcer of left calf with fat layer exposed; M86.472 Chronic osteomyelitis with draining sinus, left ankle and foot; D64.9 Anemia, unspecified; G80.9 Cerebral palsy, unspecified; J42 Unspecified chronic bronchitis; F79 Unspecified intellectual disabilities

== ENCOUNTER 2020-02-21 10:02 | Outpatient (CLI) | payer MEDICARE ==
[2020-02-21] MEDS ORDERED: LIDOCAINE (4%) 40 MG/ML TOPICAL SOLN 50 ML BOTTLE TP ONE (10:03)
== END 2020-02-21 10:03 | disposition home or self-care (01) ==
LOC: WOUND 10:02
PROVIDERS: ATTEND Surgery
DX: L97.326 Non-pressure chronic ulcer of left ankle with bone involvement without evidence of necrosis (principal); L97.222 Non-pressure chronic ulcer of left calf with fat layer exposed; M86.472 Chronic osteomyelitis with draining sinus, left ankle and foot; D64.9 Anemia, unspecified; G80.9 Cerebral palsy, unspecified; J42 Unspecified chronic bronchitis; F79 Unspecified intellectual disabilities

== ENCOUNTER 2020-03-06 10:13 | Outpatient (CLI) | payer MEDICARE ==
[2020-03-06] MEDS ORDERED: LIDOCAINE (4%) 40 MG/ML TOPICAL SOLN 50 ML BOTTLE TP SCH (10:30)
== END 2020-03-06 10:14 | disposition home or self-care (01) ==
LOC: WOUND 10:13
PROVIDERS: ATTEND Surgery
DX: S91.002D Unspecified open wound, left ankle, subsequent encounter (principal); L97.326 Non-pressure chronic ulcer of left ankle with bone involvement without evidence of necrosis; L97.222 Non-pressure chronic ulcer of left calf with fat layer exposed; M86.472 Chronic osteomyelitis with draining sinus, left ankle and foot; D64.9 Anemia, unspecified; G80.9 Cerebral palsy, unspecified; J42 Unspecified chronic bronchitis; F79 Unspecified intellectual disabilities; X58.XXXD Exposure to other specified factors, subsequent encounter

== ENCOUNTER 2020-03-20 09:57 | Outpatient (CLI) | payer MEDICARE ==
[2020-03-20] MEDS ORDERED: LIDOCAINE (4%) 40 MG/ML TOPICAL SOLN 50 ML BOTTLE TP ONE (10:37)
== END 2020-03-20 09:58 | disposition home or self-care (01) ==
LOC: WOUND 09:57
PROVIDERS: ATTEND Surgery
DX: S91.002D Unspecified open wound, left ankle, subsequent encounter (principal); L97.322 Non-pressure chronic ulcer of left ankle with fat layer exposed; L97.222 Non-pressure chronic ulcer of left calf with fat layer exposed; M86.472 Chronic osteomyelitis with draining sinus, left ankle and foot; D64.9 Anemia, unspecified; G80.9 Cerebral palsy, unspecified; J42 Unspecified chronic bronchitis; F79 Unspecified intellectual disabilities; X58.XXXD Exposure to other specified factors, subsequent encounter

== ENCOUNTER 2020-04-03 09:55 | Outpatient (CLI) | payer MEDICARE ==
[2020-04-03] MEDS ORDERED: LIDOCAINE (4%) 40 MG/ML TOPICAL SOLN 50 ML BOTTLE TP NR (10:28)
== END 2020-04-03 09:56 | disposition home or self-care (01) ==
LOC: WOUND 09:55
PROVIDERS: ATTEND Surgery
DX: S91.002D Unspecified open wound, left ankle, subsequent encounter (principal); L97.326 Non-pressure chronic ulcer of left ankle with bone involvement without evidence of necrosis; L97.222 Non-pressure chronic ulcer of left calf with fat layer exposed; M86.472 Chronic osteomyelitis with draining sinus, left ankle and foot; D64.9 Anemia, unspecified; G80.9 Cerebral palsy, unspecified; J42 Unspecified chronic bronchitis; F79 Unspecified intellectual disabilities; X58.XXXD Exposure to other specified factors, subsequent encounter

== ENCOUNTER 2020-04-17 10:07 | Outpatient (CLI) | payer MEDICARE ==
[2020-04-17] MEDS ORDERED: LIDOCAINE (4%) 40 MG/ML TOPICAL SOLN 50 ML BOTTLE TP ONE (10:33)
== END 2020-04-17 10:08 | disposition home or self-care (01) ==
LOC: WOUND 10:07
PROVIDERS: ATTEND Surgery
DX: S91.002D Unspecified open wound, left ankle, subsequent encounter (principal); L97.326 Non-pressure chronic ulcer of left ankle with bone involvement without evidence of necrosis; L97.222 Non-pressure chronic ulcer of left calf with fat layer exposed; M86.472 Chronic osteomyelitis with draining sinus, left ankle and foot; D64.9 Anemia, unspecified; G80.9 Cerebral palsy, unspecified; J42 Unspecified chronic bronchitis; F79 Unspecified intellectual disabilities; X58.XXXD Exposure to other specified factors, subsequent encounter
CPT/HCPCS: 17250

== ENCOUNTER 2020-05-01 10:26 | Outpatient (CLI) | payer MEDICARE ==
[2020-05-01] MEDS ORDERED: LIDOCAINE (4%) 40 MG/ML TOPICAL SOLN 50 ML BOTTLE TP SCH (11:00)
== END 2020-05-01 10:27 | disposition home or self-care (01) ==
LOC: WOUND 10:26
PROVIDERS: ATTEND Surgery
DX: S91.002D Unspecified open wound, left ankle, subsequent encounter (principal); L97.326 Non-pressure chronic ulcer of left ankle with bone involvement without evidence of necrosis; L97.222 Non-pressure chronic ulcer of left calf with fat layer exposed; M86.472 Chronic osteomyelitis with draining sinus, left ankle and foot; G80.9 Cerebral palsy, unspecified; J42 Unspecified chronic bronchitis; F79 Unspecified intellectual disabilities; X58.XXXD Exposure to other specified factors, subsequent encounter

== ENCOUNTER 2020-05-15 10:35 | Outpatient (CLI) | payer MEDICARE ==
[2020-05-15] MEDS ORDERED: LIDOCAINE (4%) 40 MG/ML TOPICAL SOLN 50 ML BOTTLE TP ONE (10:36)
== END 2020-05-15 10:36 | disposition home or self-care (01) ==
LOC: WOUND 10:35
PROVIDERS: ATTEND Surgery
DX: S91.002D Unspecified open wound, left ankle, subsequent encounter (principal); L97.326 Non-pressure chronic ulcer of left ankle with bone involvement without evidence of necrosis; L97.222 Non-pressure chronic ulcer of left calf with fat layer exposed; M86.472 Chronic osteomyelitis with draining sinus, left ankle and foot; G80.9 Cerebral palsy, unspecified; J42 Unspecified chronic bronchitis; F79 Unspecified intellectual disabilities; X58.XXXD Exposure to other specified factors, subsequent encounter

== ENCOUNTER 2020-05-29 10:31 | Outpatient (CLI) | payer MEDICARE | END 2020-05-29 10:32 | disposition home or self-care (01) | LOC: WOUND 10:31 | PROVIDERS: ATTEND Surgery | DX: S91.002D Unspecified open wound, left ankle, subsequent encounter (principal); L97.328 Non-pressure chronic ulcer of left ankle with other specified severity; L97.222 Non-pressure chronic ulcer of left calf with fat layer exposed; M86.472 Chronic osteomyelitis with draining sinus, left ankle and foot; G80.9 Cerebral palsy, unspecified; J42 Unspecified chronic bronchitis; F79 Unspecified intellectual disabilities; X58.XXXD Exposure to other specified factors, subsequent encounter | CPT/HCPCS: 99213; G0463 ==